=== PATIENT | male | born 1955 | race African-American/Black ===

== ENCOUNTER 2016-10-06 21:36 | Emergency (ER) | payer MEDICARE ==
[2016-10-06] MEDS ORDERED: Tetracaine HCl 0.5% Ophth Soln 2 ML Bottle ONE (22:05)
[2016-10-06] MEDS ORDERED: Fluorescein Opthalmic Strip ONE (22:05)
== END 2016-10-06 22:35 | disposition home or self-care (01) ==
LOC: NAV ERS 21:36
DX: H00.012 Hordeolum externum right lower eyelid (principal); Z79.899 Other long term (current) drug therapy; Z79.82 Long term (current) use of aspirin
CPT/HCPCS: 99283

== ENCOUNTER 2017-02-28 12:15 | Emergency (ER) | payer MEDICARE ==
[2017-02-28] MEDS ORDERED: Ibuprofen 800 MG TAB ONE (12:38)
--- NOTE | 2017-02-28 14:23 | RAD ---
CHEST TWO VIEWS: History: Cough. Comparison: 12-12-14 FINDINGS: Cardiac silhouette and pulmonary vasculature are unremarkable. Scattered areas of scarring are stable . There is no confluent airspace consolidation, pneumothorax, or pleural fluid evident. IMPRESSION: No active cardiopulmonary abnormalities demonstrated. POS: [facility]
== END 2017-02-28 13:27 | disposition home or self-care (01) ==
LOC: NAV ERS 12:15
DX: J11.1 Influenza due to unidentified influenza virus with other respiratory manifestations (principal); M19.90 Unspecified osteoarthritis, unspecified site; F41.9 Anxiety disorder, unspecified; Z79.82 Long term (current) use of aspirin; Z79.899 Other long term (current) drug therapy
CPT/HCPCS: 71020; 87081; 87430

== ENCOUNTER 2018-04-19 09:06 | Emergency (ER) | payer MEDICARE | END 2018-04-19 09:48 | disposition home or self-care (01) | LOC: NAV ERS 09:06 | DX: F41.9 Anxiety disorder, unspecified (principal); N40.0 Benign prostatic hyperplasia without lower urinary tract symptoms; M19.90 Unspecified osteoarthritis, unspecified site; Z87.891 Personal history of nicotine dependence; Z79.82 Long term (current) use of aspirin; Z79.899 Other long term (current) drug therapy; Z79.1 Long term (current) use of non-steroidal anti-inflammatories (NSAID) | CPT/HCPCS: 93005 ==

== ENCOUNTER 2019-07-14 21:59 | Emergency (ER) | payer MEDICARE | END 2019-07-14 22:33 | disposition home or self-care (01) | LOC: NAV ERS 21:59 | DX: I10 Essential (primary) hypertension (principal); N40.0 Benign prostatic hyperplasia without lower urinary tract symptoms; F41.9 Anxiety disorder, unspecified; Z87.891 Personal history of nicotine dependence; Z79.82 Long term (current) use of aspirin; Z79.899 Other long term (current) drug therapy | CPT/HCPCS: 99283 ==

== ENCOUNTER 2020-03-24 14:09 | Outpatient (CLI) | payer MEDICARE ==
--- NOTE | 2020-03-24 14:30 | RAD ---
XR Shoulder Rt 3 View STANDARD: 03/24/2020 2:15 PM CLINICAL INDICATION: Right shoulder pain. COMPARISON: None. FINDINGS: Bones: No acute fracture. Glenohumeral joint: There is mild glenohumeral osteoarthrosis. There is enthesopathic change off the inferior aspect of the glenoid rim. AC joint: There is mild AC joint osteoarthrosis. Visualized lung: Clear. Soft tissues: Within normal limits. IMPRESSION: No acute osseous abnormality.
== END 2020-03-24 14:10 | disposition home or self-care (01) ==
LOC: NAV RAD 14:09
PROVIDERS: ATTEND Physical Medicine & Rehabilitation
DX: M25.511 Pain in right shoulder (principal)

== ENCOUNTER 2021-03-23 14:40 | Emergency (ER) | payer MEDICARE ==
[2021-03-23 15:03] LABS: #Basophils 0.1 thou/uL (0.0-0.2); #Lymphocytes 1.9 thou/uL (1.20-3.40); #Monocytes 0.3 thou/uL (0.11-0.59); #Neutrophils 1.5 thou/uL (1.40-6.50); %Basophils 1.4 % (0.0-1.0); %Eosinophils 1.2 % (0.0-10.0); %Lymphocytes 49.1 % (21.0-51.0); %Monocytes 7.8 % (0.0-10.0); %Neutrophils 40.5 % (42.0-75.0); Hemoglobin 14.5 g/dL (14.0-18.0); Mean Corpuscular HGB CONC 32.2 g/dL (32.0-36.0); Mean Corpuscular Hemoglobin 28.9 pg (27.0-31.0); Mean Corpuscular Volume 89.7 fL (78.0-98.0); Mean Platelet Volume 9.6 fL (7.4-10.4); Platelet Count 158 thou/uL (130-400); RBC Distribution Width 11.9 % (11.5-14.5); Red Blood Cell (RBC) Count 5.01 mill/uL (4.70-6.10); White Blood Cell (WBC) Count 3.8 thou/uL (4.8-10.8)
[2021-03-23 15:23] LABS: AST (SGOT) 39 U/L (5-34); Albumin 4.1 g/dL (3.4-4.8); Anion Gap 12 mmol/L (10-20); BUN (Urea Nitrogen) 11 mg/dL (8.4-25.7); Bilirubin, Total 0.4 mg/dL (0.2-1.2); Calc. Creatinine Clearance 0 mL/min (70-130); Calcium 8.5 mg/dL (7.8-10.44); Carbon Dioxide 25 mmol/L (23-31); Chloride 107 mmol/L (98-107); Glucose 90 mg/dL (80-115); Potassium 3.9 mmol/L (3.5-5.1); Protein, Total 7.1 g/dL (5.8-8.1); Sodium 140 mmol/L (136-145)
[2021-03-23 15:39] LABS: ALT (SGPT) 59 U/L (8-55); Alkaline Phosphatase 62 U/L (40-110)
[2021-03-23 15:52] LABS: Lipase 58 U/L (8-78)
== END 2021-03-23 18:24 | disposition home or self-care (01) ==
LOC: NAV ERS 14:40
DX: R07.89 Other chest pain (principal); I10 Essential (primary) hypertension; M19.90 Unspecified osteoarthritis, unspecified site; Z87.891 Personal history of nicotine dependence; Z79.82 Long term (current) use of aspirin; Z79.899 Other long term (current) drug therapy
CPT/HCPCS: 71045; 80053; 83690; 84484; 85025; 93005

== ENCOUNTER 2022-03-23 01:56 | Emergency (ER) | payer MEDICARE ==
[2022-03-23 02:39] LABS: PTT 24.5 sec (22.9-36.1); Prothrombin Time 13.2 sec (12.0-14.7)
[2022-03-23 02:47] LABS: ALT (SGPT) 73 U/L (8-55); AST (SGOT) 52 U/L (5-34); Albumin 3.9 g/dL (3.4-4.8); Alkaline Phosphatase 78 U/L (40-110); Anion Gap 13 mmol/L (10-20); BUN (Urea Nitrogen) 16 mg/dL (8.4-25.7); Bilirubin, Total 0.2 mg/dL (0.2-1.2); Calc. Creatinine Clearance 0 mL/min (70-130); Calcium 8.7 mg/dL (7.8-10.44); Carbon Dioxide 25 mmol/L (23-31); Chloride 106 mmol/L (98-107); Estimated GFR 84; Globulin 3.3 g/dL (2.4-3.5); Glucose 147 mg/dL (80-115); Protein, Total 7.2 g/dL (5.8-8.1); Sodium 140 mmol/L (136-145)
[2022-03-23 02:52] LABS: Mean Corpuscular HGB CONC 32.6 g/dL (32.0-36.0); Mean Corpuscular Hemoglobin 29.3 pg (27.0-31.0); Mean Corpuscular Volume 89.8 fl (78.0-98.0); Platelet Count 175 10x3/uL (130-400); Red Blood Cell (RBC) Count 4.78 mill/uL (4.70-6.10); White Blood Cell (WBC) Count 5.6 10x3/uL (4.8-10.8)
[2022-03-23 02:53] LABS: Eosinophils 1 % (0-10); Lymphocytes 54 % (21-51); MDiff Complete? YES; Monocytes 5 % (0-10); Neutrophil 40 % (42-75); Platelet Morphology Comment Appears Adequate; RBC Morphology Normal
[2022-03-23 05:21] LABS: Troponin I Less than 0.010 ng/mL (< 0.028)
[2022-03-23] MEDS ORDERED: Aspirin 325 MG TAB ONE (05:52)
== END 2022-03-23 08:30 | disposition short-term general hospital (02) ==
LOC: NAV ERS 01:56
DX: R29.818 Other symptoms and signs involving the nervous system (principal); I10 Essential (primary) hypertension; H40.9 Unspecified glaucoma; M19.90 Unspecified osteoarthritis, unspecified site; Z86.73 Personal history of transient ischemic attack (TIA), and cerebral infarction without residual deficits; Z87.891 Personal history of nicotine dependence; Z79.82 Long term (current) use of aspirin; Z79.899 Other long term (current) drug therapy
CPT/HCPCS: 36416; 70450; 80053; 84484; 85025; 85610; 85730; 93005

== ENCOUNTER 2022-05-14 14:44 | Outpatient (CLI) | payer MEDICARE | END 2022-05-14 14:45 | disposition home or self-care (01) | LOC: NAV RAD 14:44 | PROVIDERS: ATTEND Nurse Practitioner Family | DX: M17.0 Bilateral primary osteoarthritis of knee (principal); M25.552 Pain in left hip; M16.12 Unilateral primary osteoarthritis, left hip | CPT/HCPCS: 73565 ==

== ENCOUNTER 2022-08-14 12:12 | Emergency (ER) | payer MEDICARE ==
[2022-08-14] MEDS ORDERED: Fluorescein Opthalmic Strip ONE (12:47)
[2022-08-14] MEDS ORDERED: Tetracaine 0.5% PF 4 ML BOT ONE (12:47)
[2022-08-14] MEDS ORDERED: Boostrix 0.5 ML (Tdap) VIAL (>/=7 yrs of age) ONE (12:59)
== END 2022-08-14 13:25 | disposition home or self-care (01) ==
LOC: NAV ERS 12:12
DX: S05.92XA Unspecified injury of left eye and orbit, initial encounter (principal); I10 Essential (primary) hypertension; I25.10 Atherosclerotic heart disease of native coronary artery without angina pectoris; Z79.82 Long term (current) use of aspirin; Z87.891 Personal history of nicotine dependence; W22.8XXA Striking against or struck by other objects, initial encounter; Z86.73 Personal history of transient ischemic attack (TIA), and cerebral infarction without residual deficits
CPT/HCPCS: 90471; 90715

== ENCOUNTER 2023-07-10 19:16 | Emergency (ER) | payer MEDICARE ==
[2023-07-10 19:55] LABS: Hematocrit 42.6 % (42.0-52.0); Hemoglobin 13.3 g/dL (14.0-18.0); Mean Corpuscular HGB CONC 31.1 g/dL (32.0-36.0); Mean Corpuscular Hemoglobin 27.7 pg (27.0-31.0); Mean Corpuscular Volume 89.2 fl (78.0-98.0); Platelet Count 162 10x3/uL (130-400); RBC Distribution Width 12.1 % (11.5-14.5); Red Blood Cell (RBC) Count 4.78 mill/uL (4.70-6.10); White Blood Cell (WBC) Count 4.1 10x3/uL (4.8-10.8)
[2023-07-10 19:56] LABS: #Eosinphils 0.1 thou/uL (0.0-0.7); #Lymphocytes 2.1 thou/uL (1.20-3.40); #Monocytes 0.4 thou/uL (0.11-0.59); #Neutrophils 1.5 thou/uL (1.40-6.50); %Basophils 0.9 % (0.0-1.0); %Eosinophils 2.5 % (0.0-10.0); %Lymphocytes 50.7 % (21.0-51.0); %Monocytes 9.8 % (0.0-10.0); Manual Diff?? NO; Mean Platelet Volume 8.1 fL (7.4-10.4)
[2023-07-10 19:57] LABS: ALT (SGPT) 39 U/L (8-55); AST (SGOT) 31 U/L (5-34); Albumin 4.2 g/dL (3.4-4.8); Alkaline Phosphatase 78 U/L (40-110); Anion Gap 15 mmol/L (10-20); BUN (Urea Nitrogen) 11 mg/dL (8.4-25.7); Bilirubin, Total 0.5 mg/dL (0.2-1.2); Calc. Creatinine Clearance 0 mL/min (70-130); Calcium 8.6 mg/dL (7.8-10.44); Carbon Dioxide 22 mmol/L (23-31); Chloride 110 mmol/L (98-107); Estimated GFR 91; Glucose 89 mg/dL (80-115); Potassium 3.7 mmol/L (3.5-5.1); Protein, Total 7.2 g/dL (5.8-8.1); Sodium 143 mmol/L (136-145)
[2023-07-10 20:02] LABS: Troponin I Less than 0.010 ng/mL (< 0.028)
[2023-07-10 23:06] LABS: Troponin I Less than 0.010 ng/mL (< 0.028)
== END 2023-07-11 | disposition home or self-care (01) ==
LOC: NAV ERS 19:16
DX: R55 Syncope and collapse (principal); R06.02 Shortness of breath; I10 Essential (primary) hypertension; Z87.891 Personal history of nicotine dependence
CPT/HCPCS: 71045; 80053; 84484; 85025; 93005

== ENCOUNTER 2024-01-10 19:54 | Emergency (ER) | payer MEDICARE ==
[2024-01-10 20:49] LABS: #Basophils 0.1 thou/uL (0.0-0.2); #Eosinophils 0.1 thou/uL (0.0-0.7); #Lymphocytes 1.3 thou/uL (1.20-3.40); #Monocytes 0.3 thou/uL (0.11-0.59); #Neutrophils 1.4 thou/uL (1.40-6.50); %Basophils 1.6 % (0.0-1.0); %Eosinophils 2.2 % (0.0-10.0); %Lymphocytes 42.6 % (21.0-51.0); %Monocytes 10.9 % (0.0-10.0); %Neutrophils 42.8 % (42.0-75.0); Hematocrit 43.1 % (42.0-52.0); Mean Corpuscular HGB CONC 32.4 g/dL (32.0-36.0); Mean Corpuscular Hemoglobin 27.8 pg (27.0-31.0); Mean Corpuscular Volume 85.5 fl (78.0-98.0); Mean Platelet Volume 10.3 fL (7.4-10.4); Platelet Count 169 10x3/uL (130-400); RBC Distribution Width 11.4 % (11.5-14.5); Red Blood Cell (RBC) Count 5.03 mill/uL (4.70-6.10); White Blood Cell (WBC) Count 3.2 10x3/uL (4.8-10.8)
[2024-01-10] MEDS ORDERED: Aspirin 325 MG TAB ONE (21:03)
[2024-01-10 21:04] LABS: Troponin I Less than 0.010 ng/mL (< 0.028)
[2024-01-10] MEDS ORDERED: Nitroglycerin 2% Ointment 1 INCH/1 GM Packet ONE (21:04)
[2024-01-10 21:15] LABS: ALT (SGPT) 32 U/L (8-55); AST (SGOT) 29 U/L (5-34); Albumin 3.9 g/dL (3.4-4.8); Alkaline Phosphatase 82 U/L (40-110); Anion Gap 11 mmol/L (10-20); BUN (Urea Nitrogen) 10 mg/dL (8.4-25.7); Bilirubin, Total 0.6 mg/dL (0.2-1.2); Calc. Creatinine Clearance 0 mL/min (70-130); Calcium 9.2 mg/dL (7.8-10.44); Carbon Dioxide 26 mmol/L (23-31); Chloride 106 mmol/L (98-107); Estimated GFR 78; Globulin 3.2 g/dL (2.4-3.5); Glucose 152 mg/dL (80-115); Potassium 3.8 mmol/L (3.5-5.1); Protein, Total 7.1 g/dL (5.8-8.1); Sodium 139 mmol/L (136-145)
[2024-01-10] MEDS ORDERED: Aspirin Chewable 81 MG TAB ONE (21:15)
== END 2024-01-10 23:07 | disposition short-term general hospital (02) ==
LOC: NAV ERS 19:54
DX: R07.9 Chest pain, unspecified (principal); I10 Essential (primary) hypertension; Z87.891 Personal history of nicotine dependence; Z79.82 Long term (current) use of aspirin; Z79.899 Other long term (current) drug therapy
CPT/HCPCS: 71045; 80053; 84484; 85025; 93005

== ENCOUNTER → 2024-02-27 | Emergency (ER) | payer MEDICARE | LOC: NAV ERS 13:04 | DX: R05.9 Cough, unspecified (principal); I10 Essential (primary) hypertension; I25.10 Atherosclerotic heart disease of native coronary artery without angina pectoris; Z86.73 Personal history of transient ischemic attack (TIA), and cerebral infarction without residual deficits; Z87.891 Personal history of nicotine dependence | CPT/HCPCS: 71046; 87428 ==

== ENCOUNTER 2024-04-24 02:51 | Emergency (ER) | payer MEDICARE ==
[2024-04-24] MEDS ORDERED: methylPREDNISolone Sod Succ/PF 125 MG/2 ML VIAL ONE (03:14)
== END 2024-04-24 03:42 | disposition home or self-care (01) ==
LOC: NAV ERS 02:51
DX: M54.12 Radiculopathy, cervical region (principal); R07.89 Other chest pain; I10 Essential (primary) hypertension; H40.9 Unspecified glaucoma; I25.10 Atherosclerotic heart disease of native coronary artery without angina pectoris; M19.90 Unspecified osteoarthritis, unspecified site; Z55.6 Problems related to health literacy; Z87.891 Personal history of nicotine dependence; Z86.73 Personal history of transient ischemic attack (TIA), and cerebral infarction without residual deficits; Z79.899 Other long term (current) drug therapy
CPT/HCPCS: 96372; 99283; J2919